=== PATIENT | female | born 1930 | race Caucasian/White ===

== ENCOUNTER 2017-01-28 15:07 | Inpatient (IN) | payer OTHER, MEDICARE ==
[~2017-01-28] VITALS: Ht 170.2 cm; Wt 65.3 kg
--- NOTE | 2017-01-28 15:29 | ED GENERAL ADULT ---
History of Present Illness General Chief Complaint: Fall Stated Complaint: BIBA FROM [place] FOR FALL Source: patient, family, old records, EMS Exam Limitations: dementia Vital Signs & Intake/Output Vital Signs & Intake/Output Vital Signs Date Time Temp Pulse Resp B/P B/P Pulse O2 O2 Flow FiO2 Mean Ox Delivery Rate 01/28 1532 96 Room Air 01/28 1515 98.2 64 17 160/85 96 Room Air Allergies Coded Allergies: acetaminophen (From PERCOCET) (UNKNOWN 01/28/17) cephalexin (From KEFLEX) (UNKNOWN 01/28/17) donepezil (From ARICEPT) (UNKNOWN 01/28/17) metronidazole (From FLAGYL) (UNKNOWN 01/28/17) oxycodone (From PERCOCET) (UNKNOWN 01/28/17) Triage Note: 86 Y/O FEMALE BIBA FROM A [employer] OUTTING. PT HAS HX OF DEMENTIA BUT A/O X2. PER EMS PT WAS ABOUT TO GET ON BUS AND HEAD BACK TO FACILITY AFTER OUTTING AND DID NOT MAKE IT TO FIRST STEP AND FELL BACKWARDS STRIKING BACK OF HEAD C/O RT SHOLDER PAIN AND ALSO A BRUISING TO LEFT HAND THUMB. PT NOTED WITH A LAC TO BACK OF HEAD UNSURE OF LENGHT YET ABOUT TO CLEAN AND ASSESS. PT NOTED WITH A NITRO PATCH TO RT CHESTWALL. PT ALSO NOTED WITH DRESSING TO RT LOWER DYE AND UNSURE OF WHAT KIND OF WOUND IT IS. SUGAR ANGULO AT BEDSIDE TO EVAL PT Triage Nurses Notes Reviewed? yes Onset: Just prior to arrival Duration: minute(s): (30) Timing: recent history Injury Environment: home Severity: moderate No Modifying Factors: none HPI: Patient is an 86-year-old female with history of dementia, high cholesterol, rheumatoid arthritis, hypertension, incontinence, constipation and depression presenting to the emergency department from assisted living with chief complaint of fall while at a luncheon outing. Patient unable to report any history as she "does not remember". All she knows is that she hit the back of her head and it hurts. Denies any nausea or vomiting. Denies chest pain or palpitations. Denies any trouble breathing. Denies abdominal pain. She is unsure if she had any presyncopal symptoms prior to falling. She is unsure if she tripped over anything. According to EMS she missed a step on the bus and fell backwards. According to the son the nursing supervisor testing from the assisted-living reported that she was in line and then collapsed. Stories are conflicting. Patient unable to report any history. Patient denying any lower extremity or upper extremity pain. Denies any burning or pain with urination. Denies any recent cough. (AGGIE GROVES) Reconcile Medications Acetaminophen (Tylenol Extra Strength) 500 MG TABLET 2 TAB PO BID PRN PAIN ( Reported) Ascorbate Calcium (Vitamin C) 500 MG TABLET 1 TAB PO DAILY SUPPLEMENT ( Reported) Aspirin (Aspirin*) 81 MG TAB.CHEW 1 TAB PO DAILY HEART HEALTH (Reported) Calcium Carbonate/Vitamin D3 (Calcium 600 + Vit D 400 Tablet) 600 MG-400 TABLET 2 TAB PO DAILY SUPPLEMENT (Reported) Citalopram Hydrobromide (Celexa) 10 MG TABLET 3 TAB PO DAILY DEPRESSION ( Reported) Denosumab (Prolia) (Unknown Strength) SYRINGE (Unknown Dose) EVERY 6 MONTH bones (Reported) Fish Oil/Dha/Epa (Fish Oil 1,200 MG Fish Oil) 1,200 MG-144 MG-216 MG CAPSULE 1 CAP PO DAILY SUPPLEMENT (Reported) Folic Acid 1 MG TABLET 1 TAB PO DAILY SUPPLEMENT (Reported) Infliximab (Remicade) (Unknown Strength) VIAL (Unknown Dose) INJ EVERY 6 MONTH RA (Reported) Memantine HCl (Namenda XR) 28 MG CAP.SPR.24 1 CAP PO DAILY DEMENTIA (Reported ) Methotrexate 2.5 MG TABLET 7 TAB PO QWED RA (Reported) Methylcellulose (Fiber) 500 MG TABLET 1 TAB PO DAILY SUPPLEMENT (Reported) Polyethylene Glycol 3350 (Miralax) 17 GRAM POWD.PACK 1 PAC PO DAILY PRN CONSTIPATION (Reported) dissolve in water Rivastigmine (Exelon) 13.3 MG/24 HOUR PATCH.TD24 1 PAT TOP DAILY DEMENTIA ( Reported) Sennosides/Docusate Sodium (Senna S Tablet) 8.6 MG-50 MG TABLET 2 TAB PO BID PRN CONSTIPATION (Reported) Simvastatin (Simvastatin*) 20 MG TABLET 1 TAB PO DAILY CHOLESTEROL (Reported) Solifenacin Succinate (Vesicare) 10 MG TABLET 1 TAB PO DAILY INCONTINENCE ( Reported) Triamterene/Hydrochlorothiazid (Triamterene-Hctz 37.5-25 MG Tb) 37.5 MG-25 MG TABLET 0.5 TAB PO DAILY HTN (Reported) (KARINA MD,SANDY) Past History Travel History Traveled to [place] past 21 day No Medical History Any Pertinent Medical History? see below for history Surgical History Surgical History: non-contributory Family History Hx Contributory? No (AGGIE GROVES) Review of Systems Review of Systems Constitutional: Reports: no symptoms. Comments Review of systems: See HPI, All other systems negative. Constitutional, no chills fever or weight loss HEENT: No visual changes no sore throat no congestion Cardiovascular: No chest pain ,palpitation , orthopnea or ankle swelling Skin, no jaundice no rashes Respiratory: No dyspnea cough sputum or hemoptysis GI: No nausea no vomiting : No dysuria No hematuria Muscle skeletal: no back pain, no neck pain, Neurologic: No numbness Psych: No INCREASED stress anxiety or depression,. Heme/endocrine: No bruising no bleeding no polyuria or polydipsia Immunology: No splenectomy or history of AIDS (AGGIE GROVES) Physical Exam Physical Exam General Appearance: well developed/nourished, no apparent distress, alert, awake , comfortable Comments: Well-developed well-nourished person in no acute distress HEENT:extraocular motion intact, no nystagmus. Pupils equally round and reactive to light and accommodation. Nose is atraumatic. External auditory canal and Tympanic membranes clear. Pharynx normal. No swelling or edema. Large hematoma approximately 5-6 cm in diameter, circular, noted on the posterior right occipital region of the scalp. No other bogginess or step-off palpated over entire scalp. Slightly dry lips. Neck: Supple, no lymphadenopathy, normal range of motion without pain or tenderness, no C-spine tenderness to palpation. There is some cervical paraspinal muscle tenderness to palpation. Back: Nontender to palpation throughout entire spine. No cervical, thoracic or lumbar pain to palpation over the bony prominences. No paraspinal muscle tenderness to palpation. Cardiovascular: Regular rate and rhythms no murmurs rubs or gallops, normal JVP Respiratory: Chest nontender. No respiratory distress.breath sounds clear to auscultation bilaterally Abdomen: Soft, nontender nondistended, no appreciable organomegaly. Normal bowel sounds. No ascites, no rebound or guarding. Extremity: No edema, no calf tenderness to palpation, normal and equal pulses. Arthritic changes noticed the hands bilaterally. Full range of motion of bilateral wrists, hands, elbows. Nontender to palpation to the shoulders bilaterally. Subeditor strength is equal and symmetric bilaterally. Muscular strength is 4 out of 5 in upper and lower extremities bilaterally. There was a developing hematoma noted after initial evaluation over the left distal radius. No tenderness to palpation over this area. Neuro: Alert oriented x person and place, confused about time and situation, motor sensory normal, cranial nerves II through XII grossly intact. No focal deficits. Skin: Small superficial abrasion, minimal active bleeding noted on the hematoma on the scalp otherwise No appreciable rash on exposed skin, skin is warm and dry. Psych: Mood and affect is normal, memory and judgment is normal. Core Measures ACS in differential dx? Yes CVA/TIA Diagnosis: No Severe Sepsis Present: No Septic Shock Present: No (KEV WOOTEN,AGGIE) Progress Differential Diagnoses I considered the following diagnoses in my evaluation of the patient: Intracranial hemorrhage, cardiac arrhythmia, dehydration, all actually abnormality, CVA, TIA, cervical fracture, vasovagal episode, orthostatic hypotension, mechanical fall Diagnostic Imaging: Viewed by Me: Radiology Read. Discussed w/RAD: Radiology Read. Radiology Impression: PATIENT: DELFINA NULL PRESENT AGE: 86 PATIENT ACCOUNT NO: [id number] : 31 LOCATION: [facility] ORDERING PHYSICIAN: AGGIE WOOTEN SERVICE DATE: 01/28/17 EXAM TYPE: CAT - CT CERV SPINE WO IV CONTRAST; CT HEAD WO IV CONTRAST EXAMINATION: NONCONTRAST HEAD CT NONCONTRAST CERVICAL SPINE CT INDICATION INFORMATION: Fall with head strike. COMPARISON: None TECHNIQUE: Separate noncontrast CT examinations of the head and cervical spine were performed. Coronal and sagittal images were created for each examination at the technologist workstation. FINDINGS: Head: There is no evidence of acute intracranial hemorrhage or territorial infarction. No abnormal mass effect or midline shift is seen. Bunn to white matter differentiation is well preserved. No extra-axial fluid collections are identified. No hydrocephalus. Proportional prominence of the ventricles and sulcal spaces is consistent with mild volume loss. Patchy periventricular and deep white matter hypoattenuation is consistent with moderate small vessel ischemic changes. There is prominent soft tissue swelling with hematoma overlying the right parietal region. There is no underlying calvarial fracture. The mastoid air cells and visualized portions of the paranasal sinuses are well aerated. Cervical spine: There is straightening of the normal cervical lordosis. Grade 1 anterolisthesis of C4 on C5. There is otherwise anatomic alignment of the vertebral bodies and posterior elements. The atlantoaxial and atlantooccipital articulations are intact. Vertebral body heights are maintained. There is fusion of the C5-C6 vertebral bodies. Multilevel facet arthropathy. Multilevel disc space narrowing with endplate osteophyte formation. No evidence of acute fracture. No prevertebral soft tissue swelling. Visualized portions of the lung apices are unremarkable. The thyroid gland is unremarkable. IMPRESSION: 1. No acute intracranial findings. Mild volume loss with moderate small vessel ischemic changes. 2. Right parietal soft tissue swelling and hematoma. No underlying calvarial fracture. 3. No acute fracture or malalignment of the cervical spine. Moderate degenerative changes. CXR Impression: PATIENT: DELFINA NULL PRESENT AGE : 86 PATIENT ACCOUNT NO: [id number] : 31 LOCATION: [facility] ORDERING PHYSICIAN: AGGIE WOOTEN SERVICE DATE: 01/28/17 EXAM TYPE: RAD - XRY-PORTABLE CHEST XRAY EXAMINATION: XR PORTABLE CHEST CLINICAL INFORMATION: Fall. Syncope. COMPARISON: None TECHNIQUE: Portable AP view of the chest was obtained. FINDINGS: The lungs are well expanded. Minimal left basilar opacity. No edema or effusion. No pneumothorax. The cardiomediastinal silhouette is within normal limits. Radiopaque hardware noted in the right humerus. IMPRESSION : Minimal left basilar opacity favors atelectasis, although pneumonia not excluded. DICTATED BY: POLO HOPSON MD DATE/TIME DICTATED:01/28/171546 MEDICAL SUPERVISOR:KARO DATE/TIME TRANSCRIBED:01/28/171546 CONFIDENTIAL, DO NOT COPY WITHOUT APPROPRIATE AUTHORIZATION. <Electronically signed in Other Vendor System> SIGNED BY: POLO HOPSON MD 01/28/17 [id number] Initial ED EKG: SINUS RHYTHM AT 63 BPM, PROBABLE LEFT ATRIAL ABNORMALITY Comments: 01/28/2017 5:13:14 PMOn arrival patient is alert and oriented 2 which is baseline for this patient. According to son she is acting at baseline. She does have large hematoma on the posterior aspect of the scalp. We will clean this area to further assess. Patient will go for CT head and neck TO RULE any intracranial pathology and to rule out any tenderness or cervical spine fracture although nontender over the C spine. 01/28/2017 6:13:24 PM patient was admitted with a rolling walker, steady gait with an assist of one. Patient usually independent with ADLs at assisted living. 01/28/2017 7:03:07 PM patient family informed of all lab work results and imaging study results. Patient will be admitted first syncope, further assessment for questionable syncope, neuro checks. She will need physical therapy evaluation as well. (KEV WOOTEN,AGGIE) Plan of Care: Orders Procedure Date/time Status Heart Healthy Diet 01/29 B Active CBC WITHOUT DIFFERENTIAL 01/29 0600 Active BASIC ELECTROLYTES PLUS BUN&CR 01/29 0600 Active Intake & Output 01/28 1858 Active XRY-WRIST COMPLETE-LEFT 01/28 1841 Active Patient Data 01/28 1828 Active Admit to inpatient 01/28 1827 Active Vital Signs 01/28 1827 Active Code Status 01/28 1827 Active Telemetry/Caddymaster 01/28 1529 Active URINALYSIS 01/28 1529 Complete TROPONIN LEVEL 01/28 1529 Complete COMPREHENSIVE METABOLIC PANEL 01/28 1529 Complete CREATINE PHOSPHOKINASE 01/28 1529 Complete CBC WITHOUT DIFFERENTIAL 01/28 1529 Complete EKG 01/28 1529 Active Laboratory Tests 01/28/17 1618: Urinalysis LIGHT H, Urine Color YEL, Urine Clarity CLEAR, Urine pH 6.5, Ur Specific [place] 1.020, Urine Protein NEG, Urine Ketones NEG, Urine Nitrite NEG, Urine Bilirubin NEG, Urine Urobilinogen 0.2, Ur Leukocyte Esterase SMALL H, Ur Microscopic SEDIMENT EXAMINED, Urine RBC RARE, Urine WBC 5-10 H, Ur Epithelial Cells FEW, Urine Bacteria FEW H, Hyaline Casts RARE H, Urine Mucus FEW, Urine Hemoglobin TRACE-INTACT, Urine Glucose NEG 01/28/17 1543: Anion Gap 11, Estimated GFR 60, BUN/Creatinine Ratio 24.4, Glucose 107 H, Calcium 9.0, Total Bilirubin 0.4, AST 20, ALT 27, Alkaline Phosphatase 66, Creatine Kinase 22 L, Troponin I < 0.01, Total Protein 6.7, Albumin 3.8, Globulin 2.9, Albumin/Globulin Ratio 1.3, CBC w Diff NO MAN DIFF REQ, RBC 3.36 L, MCV 100.4 H, MCH 33.4 H, RDW 16.4 H, MPV 6.9 L, Gran % 70.3, Lymphocytes % 17.3 L, Monocytes % 10.1 H, Eosinophils % 1.9, Basophils % 0.4, Absolute Granulocytes 5.1, Absolute Lymphocytes 1.2, Absolute Monocytes 0.7 H, Absolute Eosinophils 0.1, Absolute Basophils 0, PUBS MCHC 33.3 Departure Departure Time of Disposition: 1819 Disposition: STILL A PATIENT Condition: Stable Clinical Impression Primary Impression: Syncope Qualifiers: Syncope type: unspecified Qualified Code: R55 - Syncope and collapse Secondary Impressions: Falls Qualifiers: Encounter type: initial encounter Qualified Code: W19.XXXA - Unspecified fall, initial encounter Hematoma Referrals: DOMINIQUE WHITE MD (PCP/Family) Departure Forms: Customer Survey General Discharge Information Admission Note Spoke With: NATACHA LARIOS,MANSOOR Davidson Documentation of Exam: Documentation of any treatments & extenuating circumstances including Concerns Regarding Discharge (functional status, medication knowledge or non-compliance, living conditions, etc.) that warrant an admission rather than observation: Patient requiring cardiology consultation secondary to questionable syncopal episode, telemetry monitoring, serial EKGs and troponins, neuro checks to assess for any delayed bleeding. Physical therapy evaluation, may need rehabilitation placement secondary to repeat falls over short period of time. Patient requiring safety Q's with assist of one with walker. Patient usually independent with a walker. (AGGIE GROVES) PA/HOTEL OPERATIONS MANAGER Co-Sign Statement Statement: ED Attending supervision documentation- [X] I saw and evaluated the patient. I have also reviewed all the pertinent lab results and diagnostic results. I agree with the findings and the plan of care as documented in the PA's/HOTEL OPERATIONS MANAGER's documentation. [X] I have reviewed the ED Record and agree with the PA's/HOTEL OPERATIONS MANAGER's documentation. [] Additions or exceptions (if any) to the PAs/HOTEL OPERATIONS MANAGER's note and plan are summarized below: [] (KARINA LARIOS,SANDY) Critical Care Note Critical Care Note Critical Care Time: non-applicable (AGGIE GROVES)
[2017-01-28] MEDS ORDERED: VESICARE10 MG PO (15:31)
[2017-01-28] MEDS ORDERED: FOLIC ACID1 M1 PO (15:32)
[2017-01-28] MEDS ORDERED: NAMENDA XR28 M1 PO (15:32)
[2017-01-28] MEDS ORDERED: TRIAMTERENE-HC1 EAC1 PO (15:32)
[2017-01-28] MEDS ORDERED: VITAMIN C500 M6 PO (15:33)
[2017-01-28] MEDS ORDERED: FISH OIL 1,2001 EACH PO (15:34)
[2017-01-28] MEDS ORDERED: METHOTREXATE2.5 M2 PO (15:34)
[2017-01-28] MEDS ORDERED: SIMVASTATIN20 M2 PO (15:35)
[2017-01-28] MEDS ORDERED: ASPIRIN81 M4 PO (15:35)
[2017-01-28] MEDS ORDERED: FIBER500 MG PO (15:35)
[2017-01-28] MEDS ORDERED: EXELON1 EAC2 TOP (15:36)
[2017-01-28] MEDS ORDERED: SENNA S TABLET1 EACH PO (15:37)
[2017-01-28] MEDS ORDERED: CALCIUM 600 +1 EA11 PO (15:37)
[2017-01-28] MEDS ORDERED: TYLENOL EXTRA500 M2 PO (15:38)
[2017-01-28] MEDS ORDERED: MIRALAX17 G1 PO (15:38)
[2017-01-28] MEDS ORDERED: CELEXA10 M1 PO (15:39)
--- NOTE | 2017-01-28 15:51 | RADIOLOGY REPORT ---
EXAMINATION: XR PORTABLE CHEST CLINICAL INFORMATION: Fall. Syncope. COMPARISON: None TECHNIQUE: Portable AP view of the chest was obtained. FINDINGS: The lungs are well expanded. Minimal left basilar opacity. No edema or effusion. No pneumothorax. The cardiomediastinal silhouette is within normal limits. Radiopaque hardware noted in the right humerus. IMPRESSION: Minimal left basilar opacity favors atelectasis, although pneumonia not excluded.
--- NOTE | 2017-01-28 16:15 | CT SCAN REPORT ---
EXAMINATION: NONCONTRAST HEAD CT NONCONTRAST CERVICAL SPINE CT INDICATION INFORMATION: Fall with head strike. COMPARISON: None TECHNIQUE: Separate noncontrast CT examinations of the head and cervical spine were performed. Coronal and sagittal images were created for each examination at the technologist workstation. FINDINGS: Head: There is no evidence of acute intracranial hemorrhage or territorial infarction. No abnormal mass effect or midline shift is seen. Bunn to white matter differentiation is well preserved. No extra-axial fluid collections are identified. No hydrocephalus. Proportional prominence of the ventricles and sulcal spaces is consistent with mild volume loss. Patchy periventricular and deep white matter hypoattenuation is consistent with moderate small vessel ischemic changes. There is prominent soft tissue swelling with hematoma overlying the right parietal region. There is no underlying calvarial fracture. The mastoid air cells and visualized portions of the paranasal sinuses are well aerated. Cervical spine: There is straightening of the normal cervical lordosis. Grade 1 anterolisthesis of C4 on C5. There is otherwise anatomic alignment of the vertebral bodies and posterior elements. The atlantoaxial and atlantooccipital articulations are intact. Vertebral body heights are maintained. There is fusion of the C5-C6 vertebral bodies. Multilevel facet arthropathy. Multilevel disc space narrowing with endplate osteophyte formation. No evidence of acute fracture. No prevertebral soft tissue swelling. Visualized portions of the lung apices are unremarkable. The thyroid gland is unremarkable. IMPRESSION: 1. No acute intracranial findings. Mild volume loss with moderate small vessel ischemic changes. 2. Right parietal soft tissue swelling and hematoma. No underlying calvarial fracture. 3. No acute fracture or malalignment of the cervical spine. Moderate degenerative changes.
[2017-01-28 16:17] LABS: ABSOLUTE BASOPHIL COUNT 0 /CUMM (0.0-0.2); ABSOLUTE EOSINOPHIL COUNT 0.1 /CUMM (0.0-0.7); ABSOLUTE GRANULOCYTE CT 5.1 /CUMM (1.4-6.5); ABSOLUTE LYMPH COUNT 1.2 /CUMM (1.2-3.4); ABSOLUTE MONOCYTE COUNT 0.7 /CUMM (0.10-0.60); BASOPHIL % 0.4 % (0.0-2.0); EOSINOPHIL % 1.9 % (0-5); GRANULOCYTE % 70.3 % (42.2-75.2); HEMATOCRIT 33.7 % (37-47); MEAN CORPUSCULAR HGB 33.4 PG (27.0-31.0); MEAN CORPUSCULAR HGB CONC 33.3 G/DL (33.0-37.0); MEAN CORPUSCULAR VOLUME 100.4 FL (81.0-99.0); MEAN PLATELET VOLUME 6.9 FL (7.4-10.4); PLATELET COUNT 199 /CUMM (130-400); RBC DISTRIBUTION WIDTH 16.4 % (11.5-14.5); RED BLOOD CELL CT 3.36 /CUMM (4.20-5.40); WHITE BLOOD CELL COUNT 7.2 /CUMM (4.8-10.8)
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
[2017-01-28] MEDS ORDERED: REMICADE100 MG INJ (19:33)
[2017-01-28] MEDS ORDERED: PROLIA60 MG/1 ML (19:40)
--- NOTE | 2017-01-28 20:11 | RADIOLOGY REPORT ---
EXAMINATION: XR WRIST, LEFT CLINICAL INFORMATION: 86-year-old experienced trauma to the left wrist. COMPARISON: None TECHNIQUE: AP, lateral, and oblique views of the left wrist. (4 views). FINDINGS: There is no definite acute fracture or dislocation seen. However, there is extensive arthritis involving the carpal carpal articulations and the radiocarpal articulations. Juxta articular sclerosis and joint space narrowing is seen throughout the wrist. The triscaphe joint is also involved with degenerative arthritis. As a matter of fact, the arthritis is so advanced that a portion of the scaphoid carpal bone has migrated through the articular surface of the distal left radius. IMPRESSION: Significant osteoarthritis and deformity of the carpal bones and their articulations and radiocarpal joints as well as the triscaphe joint. No definite acute fracture which is difficult to assess based on these findings.
--- NOTE | 2017-01-28 22:54 | Admission Certification ---
Admission Certification Certification Statement - As attending physician, I certify that at the time of - admission, based on clinical presentation, severity of - symptoms, need for further diagnostic testing and - therapeutic interventions, and risk of adverse outcomes - without in-hospital treatment, in my clinical assessment, - this patient requires an acute hospital stay for a minimum - of two nights or longer. I have also considered psychsocial - factors such as support system, advanced age, financial - issues, cognitive issues, and failed out-patient treatments, - past re-admission history, safety of patient, and lack of - compliance as applicable. Specific rationale supporting this admission is: Fall, ? Presyncope, scalp hematoma
[2017-01-28 23:41] VITALS: BP 132/74
[2017-01-29 07:50] VITALS: BP 144/76
--- NOTE | 2017-01-29 08:00 | PN- Housestaff ---
Subjective Follow-up For: Fall injury, with head trauma Complaints: no complaints Tele-Events Since Last Visit: Sinus bradycardia, sinus rhythm, heart rate ranging from 50-61. Subjective: I followed up and examined the patient today. She is resting comfortably in bed , not in distress, does not have any complaints, telemetry recordings as noted above, no overnight issues. She has bandage around her forehead, and the bruise/swelling over her left wrist has come down, and she is moving her left wrist without any difficulty. Of note, she just woke up when I followed up this morning so she was still confused, will reassess. Of note, she has baseline dementia. Review of Systems Constitutional: Reports: no symptoms. Objective Last 24 Hrs of Vital Signs/I&O Vital Signs Date Time Temp Pulse Resp B/P B/P Pulse O2 O2 Flow FiO2 Mean Ox Delivery Rate 01/28 2341 98.3 61 18 132/74 95 Room Air 01/28 1956 96.8 87 18 138/66 99 Room Air 01/28 1920 97.6 66 17 139/69 96 Room Air 01/28 1730 97.2 64 17 132/66 96 Room Air 01/28 1532 96 Room Air 01/28 1515 98.2 64 17 160/85 96 Room Air Intake & Output 01/29 1600 01/29 0800 01/29 0000 Intake Total 600 Output Total 1 Balance 599 Intake, Oral 600 Output, Other 1 Patient 65.317 kg Weight Weight Reported by Patient Measurement Method Physical Exam General Appearance: Alert, Cooperative, No Acute Distress Other Physical Findings: Skin small irregular lacerations over parietal region of head, clots present, no active bleeding, abt 3cm x 3cm bruise and swelling in the same area; mildly tender, left wrist bruise/swelling has decreased significantly HEENT PERRLA, EOMI, scalp lesion covered with a bandage (see H&P for original discription), moist mucosa Neck Supple, No JVD, no cervical tenderness Lymphatic Cervical nl Cardiovascular Regular Rate, Normal S1, Normal S2 Lungs b/l clear, except for decreased breath sound over left basal region, some crackles heard in the same zone too, no rib-cage tenderness b/l Abdomen Normal Bowel Sounds, Soft, No Tenderness Neurological Normal Speech, Strength at 5/5 X4 Ext, Normal Tone, Sensation Intact, Cranial Nerves 3-12 NL, gait not examined, but noted as in HPI Extremities No Clubbing, No Cyanosis, Normal Pulses, No Tenderness/Swelling, hip compression test normal, non-tender, is moving normally, left wrist lesion has decreased and she is able to move her left wrist without difficulty, able to move both upper extremities across over to opp shoulder, non tender, no bruise, no change in function, significant arthritic chages- suggestive of rheumatoid arthritis as well as osteoarthritis Vascular Normal Pulses, Pulses Symmetrical Current Medications: Current Medications Sig/Jeffry Start time Last Medication Dose Route Stop Time Status Admin Acetaminophen 650 MG Q6P PRN 01/28 1930 AC PO Atorvastatin Calcium 10 MG 1700 01/29 1700 AC PO Citalopram 30 MG DAILY 01/29 1000 AC Hydrobromide PO Folic Acid 1 MG DAILY 01/29 1000 AC PO Memantine 10 MG BID 01/28 2200 AC 01/28 PO 221 Morphine Sulfate 2 MG Q4P PRN 01/28 1930 AC IV Oxybutynin Chloride 5 MG BID 01/28 2200 AC 01/28 PO 221 Polyethylene Glycol 17 GM DAILY 01/29 1000 AC PO Rivastigmine 9.5 MG DAILY 01/29 1000 AC TOP Sodium Chloride 1,000 ML Q13H 01/29 0100 DC 01/29 IV 01/29 1359 0113 Last 24 Hrs of Lab/Lam Results Last 24 Hrs of Labs/Mics: Laboratory Tests 01/29/17 0620: Sodium Pending, Potassium Pending, Chloride Pending, Carbon Dioxide Pending, Anion Gap Pending, BUN Pending, Creatinine Pending, BUN/Creatinine Ratio Pending , CBC w Diff Pending, WBC Pending, RBC Pending, Hgb Pending, Hct Pending, MCV Pending, MCH Pending, RDW Pending, Plt Count Pending, MPV Pending, PUBS MCHC Pending 01/28/17 2210: Troponin I < 0.01 01/28/17 1618: Urinalysis LIGHT H, Urine Color YEL, Urine Clarity CLEAR, Urine pH 6.5, Ur Specific [place] 1.020, Urine Protein NEG, Urine Ketones NEG, Urine Nitrite NEG, Urine Bilirubin NEG, Urine Urobilinogen 0.2, Ur Leukocyte Esterase SMALL H, Ur Microscopic SEDIMENT EXAMINED, Urine RBC RARE, Urine WBC 5-10 H, Ur Epithelial Cells FEW, Urine Bacteria FEW H, Hyaline Casts RARE H, Urine Mucus FEW, Urine Hemoglobin TRACE-INTACT, Urine Glucose NEG 01/28/17 1543: Anion Gap 11, Estimated GFR 60, BUN/Creatinine Ratio 24.4, Glucose 107 H, Calcium 9.0, Iron 41, TIBC 339, Ferritin 54.1, Total Bilirubin 0.4, AST 20, ALT 27, Alkaline Phosphatase 66, Creatine Kinase 22 L, Troponin I < 0.01, Total Protein 6.7, Albumin 3.8, Globulin 2.9, Albumin/Globulin Ratio 1.3, Vitamin B12 480, Folate > 20.0 H, TSH 1.970, CBC w Diff NO MAN DIFF REQ, RBC 3.36 L, MCV 100.4 H, MCH 33.4 H, RDW 16.4 H, MPV 6.9 L, Gran % 70.3, Lymphocytes % 17.3 L, Monocytes % 10.1 H, Eosinophils % 1.9, Basophils % 0.4, Absolute Granulocytes 5.1, Absolute Lymphocytes 1.2, Absolute Monocytes 0.7 H, Absolute Eosinophils 0.1, Absolute Basophils 0, PUBS MCHC 33.3 Assessment/Plan Assessment: 86 yo F with past medical history of dementia, HTN, HLD, RA, OA, urinary incontinence, constipation, depression, was brought in by ambulance earlier this afternoon after sustaining a fall injury. Currently she is admittd and being observed, and managed in telemetry floor for the following issues: #Fall injury with truma to head History is not clear whether she sustained a mechanical fall or had an episode of syncope with a fall, so warrants a work-up, observation, and management accordingly. Differentials considered are mechanical fall, syncope, ACS, arrhythmia, TIA/stroke, dehydration, hypoglycemia among others. CT head and neck has ruled out acute intracranial bleeding and no acute cervical spine injury. Mechanical fall is likely, in the setting of her arthritis, and dehydration as evidenced by her increased BUN. Need to monitor her in telemetry for arrhythmia. TIA/stroke is also a possiblility to consider, although CT head does not demonstrate bleed. -no overnight event/arrhythmia, continue telemetry -Frequent vitals and neurochecks -Continue wound care for her scalp lesion -Ruled out ACS with serial troponin and EKG -Awaiting echocardiogram to assess her cardiac status -Previous pertinent medical records from [facility] was obtained earlier today, which did not reveal any predisposing conditions neurologically or cardiologically. No echo reports were included in the documents received. -Orthostatic blood pressure reading ordered, which is negative for orthostatic hypotension. -Continue fall precautions -Her antihypertensive medications and aspirin today -PT eval: Physical therapy assessment carried out this morning suggested short- term rehabilitation after being discharged from here. #Macrocytic anemia Hb is 11 with high MCV suggestive of possible Vit B12 deficinecy, which can also cause SCD (subacute combined degeneration of spinal cord). -Vitamin B12, Folate level, and iron studies normal #Left hand bruise -X-ray of her left wrist showed old osteoarthritic changes, no fracture or dislocation. -We will manage for local soft tissue injury, no orthopedic evaluation deemed further necessary. #Right shoulder examination is normal currently, so will only observe for now #Continue medications for dementia, hyperlipidemia, urinary incontinence, depression with home meds #Diet: Heart healthy diet #DVT ppx: ALPS for now, as possiblity of bleeding is still present #Code status: DNR/DNI Problem List: 1. Syncope 2. Falls 3. Scalp wound 4. Bruising of wrist 5. Dementia 6. HTN (hypertension) 7. HLD (hyperlipidemia) 8. Rheumatoid aortitis 9. Osteoarthritis 10. Urinary incontinence 11. Constipation 12. Depression Pain Ratin Pain Location: scalp Pain Goal: Pain 4 or less Pain Plan: prn Tomorrow's Labs & Rationales: BEP, Mg to reassess lytes and Mg
[2017-01-29 08:12] LABS: ABSOLUTE BASOPHIL COUNT 0 /CUMM (0.0-0.2); ABSOLUTE EOSINOPHIL COUNT 0.2 /CUMM (0.0-0.7); ABSOLUTE GRANULOCYTE CT 5.1 /CUMM (1.4-6.5); ABSOLUTE LYMPH COUNT 1.3 /CUMM (1.2-3.4); ABSOLUTE MONOCYTE COUNT 0.6 /CUMM (0.10-0.60); BASOPHIL % 0.3 % (0.0-2.0); EOSINOPHIL % 2.5 % (0-5); GRANULOCYTE % 71.2 % (42.2-75.2); HEMATOCRIT 32.3 % (37-47); MEAN CORPUSCULAR HGB 33.7 PG (27.0-31.0); MEAN CORPUSCULAR HGB CONC 33.5 G/DL (33.0-37.0); MEAN CORPUSCULAR VOLUME 100.6 FL (81.0-99.0); MEAN PLATELET VOLUME 7.2 FL (7.4-10.4); PLATELET COUNT 178 /CUMM (130-400); RBC DISTRIBUTION WIDTH 16.1 % (11.5-14.5); RED BLOOD CELL CT 3.21 /CUMM (4.20-5.40); WHITE BLOOD CELL COUNT 7.2 /CUMM (4.8-10.8)
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
--- NOTE | 2017-01-29 15:37 | PN- Att Addend ---
Attending MD Review Statement Attending Statement Attending MD Statement: examined this patient, discuss w/resident/PA/SENIOR SOFTWARE SYSTEMS ENGINEER, agreed w/resident/PA/SENIOR SOFTWARE SYSTEMS ENGINEER, reviewed EMR data (avail), discussed w/nursing, discussed w/ case mgmt Attending Assessment/Plan: Laboratory Tests 01/29/17 0620: Anion Gap 7, Estimated GFR > 60, BUN/Creatinine Ratio 18.8, CBC w Diff NO MAN DIFF REQ, RBC 3.21 L, MCV 100.6 H, MCH 33.7 H, RDW 16.1 H, MPV 7.2 L, Gran % 71.2, Lymphocytes % 18.2 L, Monocytes % 7.8, Eosinophils % 2.5, Basophils % 0.3, Absolute Granulocytes 5.1, Absolute Lymphocytes 1.3, Absolute Monocytes 0.6 , Absolute Eosinophils 0.2, Absolute Basophils 0, PUBS MCHC 33.5 01/28/17 2210: Troponin I < 0.01 01/28/17 1618: Urinalysis LIGHT H, Urine Color YEL, Urine Clarity CLEAR, Urine pH 6.5, Ur Specific [place] 1.020, Urine Protein NEG, Urine Ketones NEG, Urine Nitrite NEG, Urine Bilirubin NEG, Urine Urobilinogen 0.2, Ur Leukocyte Esterase SMALL H, Ur Microscopic SEDIMENT EXAMINED, Urine RBC RARE, Urine WBC 5-10 H, Ur Epithelial Cells FEW, Urine Bacteria FEW H, Hyaline Casts RARE H, Urine Mucus FEW, Urine Hemoglobin TRACE-INTACT, Urine Glucose NEG 01/28/17 1543: Anion Gap 11, Estimated GFR 60, BUN/Creatinine Ratio 24.4, Glucose 107 H, Calcium 9.0, Iron 41, TIBC 339, Ferritin 54.1, Total Bilirubin 0.4, AST 20, ALT 27, Alkaline Phosphatase 66, Creatine Kinase 22 L, Troponin I < 0.01, Total Protein 6.7, Albumin 3.8, Globulin 2.9, Albumin/Globulin Ratio 1.3, Vitamin B12 480, Folate > 20.0 H, TSH 1.970, CBC w Diff NO MAN DIFF REQ, RBC 3.36 L, MCV 100.4 H, MCH 33.4 H, RDW 16.4 H, MPV 6.9 L, Gran % 70.3, Lymphocytes % 17.3 L, Monocytes % 10.1 H, Eosinophils % 1.9, Basophils % 0.4, Absolute Granulocytes 5.1, Absolute Lymphocytes 1.2, Absolute Monocytes 0.7 H, Absolute Eosinophils 0.1, Absolute Basophils 0, PUBS MCHC 33.3 Vital Signs Date Time Temp Pulse Resp B/P B/P Pulse O2 O2 Flow FiO2 Mean Ox Delivery Rate 01/29 1236 Room Air 01/29 1230 Room Air 01/29 0750 98.8 64 20 144/76 95 Room Air 01/28 2341 98.3 61 18 132/74 95 Room Air 01/28 1956 96.8 87 18 138/66 99 Room Air 01/28 1920 97.6 66 17 139/69 96 Room Air 01/28 1730 97.2 64 17 132/66 96 Room Air Patient seen and examined at bedside. Discussed with patient the care plan. Patient knows where she lives but did given her dementia she is unable to tell me where she is right now. Patient had a mechanical fall before boarding a bus. CT of the head showed no intracranial abnormality. Telemetry shows no cardiac arrhythmias. Patient denies any chest pain or palpitations. We are getting a echocardiogram to evaluate for any valvular abnormalities. No Marisa bruits heard on examination. Seen by physical therapy and they recommended subacute rehabilitation. Discussed with case management and we will start looking for a place for rehabilitation.
[2017-01-29 16:00] VITALS: BP 108/66
--- NOTE | 2017-01-29 18:45 | ECHOCARDIOGRAM REPORT ---
DELFINA NULL Age: 86 : 1930 Gender: F Exam Date: 01/29/2017 16:36 Exam Location: [address] Ht (in): 67 Wt (lb): 143 BSA: 1.75 BP: 144 / 76 Ordering Physician: ARTIS COTE MD Referring Physician: ARTIS COTE MD Technologist: Alice Pierson [facility] Room Number: 174-02 Indications: STRUCTURAL HEART DISEASE Rhythm: Sinus Technical Quality: Good FINDINGS Left Ventricle Normal size left ventricle. Mild concentric left ventricular hypertrophy. Normal left ventricular ejection fraction visually estimated at >65 %. No obvious regional wall motion abnormalities. Abnormal relaxation filling pattern of the left ventricle for age (stage 1 diastolic dysfunction). Right Ventricle The right ventricle is normal in size and function. Right Atrium The right atrium is normal in size. Left Atrium The left atrium is normal in size. The interatrial septum is intact. Mitral Valve Mild thickening/calcification of the mitral valve leaflets. Mild to moderate mitral annular calcification. No mitral regurgitation. Aortic Valve Focal thickening of the aortic valve cusps. No aortic stenosis. Mild aortic regurgitation. Tricuspid Valve The tricuspid valve is normal in structure and function. There is trace tricuspid regurgitation. Pulmonary artery systolic pressure is normal. Pulmonic Valve Structurally normal pulmonic valve. There is trace pulmonic regurgitation. Pericardium Normal pericardium without effusion. No pleural effusion. Great Vessels Normal aortic root dimension. The aortic arch and great vessels are well seen and are normal. CONCLUSIONS Mild concentric left ventricular hypertrophy. Normal left ventricular ejection fraction visually estimated at >65 Abnormal relaxation filling pattern of the left ventricle for age (stage 1 diastolic dysfunction). The left atrium is normal in size. Mild thickening/calcification of the mitral valve leaflets. Mild to moderate mitral annular calcification. No mitral regurgitation. Focal thickening of the aortic valve cusps. No aortic stenosis. Mild aortic regurgitation. Pulmonary artery systolic pressure is normal. Marcus Hernandez M.D. (Electronically Signed) Final Date: 29 January 2017 18:45 MEASUREMENTS (Male / Female) Normal Values 2D ECHO LV Diastolic Diameter PLAX 3.4 cm 4.2 - 5.9 / 3.9 - 5.3 cm LV Systolic Diameter PLAX 2.0 cm 2.1 - 4.0 cm LV Fractional Shortening PLAX 41.2 % 25 - 46 % LV Ejection Fraction 2D Teich 73.2 % IVS Diastolic Thickness 1.2 cm LVPW Diastolic Thickness 1.2 cm LV Relative Wall Thickness 0.7 RV Internal Dim ED PLAX 2.4 cm 1.9 - 3.8 cm LVOT Diameter 2.1 cm Aortic Root Diameter 3.2 cm LA Systolic Diameter LX 3.5 cm 3.0 - 4.0 / 2.7 - 3.8 cm LA Volume 42.0 cm 18 - 58 / 22 - 52 cm Ascending Aorta Diameter 3.3 cm DOPPLER AV Peak Velocity 180.0 cm/s AV Peak Gradient 13.0 mmHg AV Mean Velocity 120.0 cm/s AV Mean Gradient 6.0 mmHg AV Velocity Time Integral 41.5 cm LVOT Peak Velocity 133.0 cm/s LVOT Peak Gradient 7.1 mmHg LVOT Mean Velocity 87.3 cm/s LVOT Mean Gradient 4.0 mmHg LVOT Velocity Time Integral 29.8 cm LVOT Stroke Volume 103.2 cm AV Area Cont Eq vti 2.5 cm AV Area Cont Eq pk 2.6 cm MV Peak Velocity 141.0 cm/s MV Peak Gradient 8.0 mmHg MV Mean Velocity 75.2 cm/s MV Mean Gradient 3.0 mmHg Mitral E Point Velocity 111.0 cm/s Mitral A Point Velocity 143.0 cm/s Mitral E to A Ratio 0.8 MV PHT Velocity 127.0 cm/s MV Deceleration Pinal 354.0 cm/s MV Pressure Half Time 107.6 ms MV Area PHT 2.0 cm MV Deceleration Time 312.0 ms TR Peak Velocity 254.0 cm/s TR Peak Gradient 25.8 mmHg Right Atrial Pressure 5.0 mmHg Pulmonary Artery Systolic Pressu 30.8 mmHg Right Ventricular Systolic Press 30.8 mmHg PV Peak Velocity 105.0 cm/s PV Peak Gradient 4.4 mmHg PV Mean Velocity 74.3 cm/s PV Mean Gradient 3.0 mmHg PV Velocity Time Integral 28.1 cm LV E' Lateral Velocity 6.8 cm/s Mitral E to LV E' Lateral Ratio 16.3 LV E' Septal Velocity 7.3 cm/s Mitral E to LV E' Septal Ratio 15.2
[2017-01-29 23:55] VITALS: BP 148/62
--- NOTE | 2017-01-30 07:37 | PN- Housestaff ---
Subjective Follow-up For: Syncope, Fall with scalp injury Complaints: no complaints Tele-Events Since Last Visit: Sinus rhythm, sinus bradycardia heart rate ranging from 56-77, some PACs. Subjective: I followed up and examined the patient today. She is resting comfortably in bed , not in distress, just woke up, appears slightly confused, doesn't have any complaints, telemetry recording as noted above, no other issues. She still has a bandage wrapped around her head. Review of Systems Constitutional: Reports: no symptoms. Objective Last 24 Hrs of Vital Signs/I&O Vital Signs Date Time Temp Pulse Resp B/P B/P Pulse O2 O2 Flow FiO2 Mean Ox Delivery Rate 01/29 2355 98.0 64 20 148/62 94 Room Air 01/29 1600 98.3 62 20 108/66 96 Room Air 01/29 1236 Room Air 01/29 1230 Room Air Intake & Output 01/30 0800 01/30 0000 01/29 1600 Intake Total 480 1320 Output Total 2 400 Balance 478 920 Intake, IV 600 Intake, Oral 480 720 Number 2 Bowel Movements Output, Other 2 Output, Urine 400 Physical Exam General Appearance: Alert, Oriented X3, Cooperative, No Acute Distress, slight confusion (just woke up) Other Physical Findings: Skin bandage wrapped around the head, over the scalp lesion as noted yesterday and the day before, not actively bleeding/oozing; mildly tender, left wrist bruise/swelling has decreased significantly HEENT PERRLA, EOMI, scalp lesion covered with a bandage (see H&P for original discription), moist mucosa Neck Supple, No JVD, no cervical tenderness Lymphatic Cervical nl Cardiovascular Regular Rate, Normal S1, Normal S2 Lungs b/l clear, except for decreased breath sound over left basal region Abdomen Normal Bowel Sounds, Soft, No Tenderness Neurological Normal Speech, Strength at 5/5 X4 Ext, Normal Tone, Sensation Intact, Cranial Nerves 3-12 NL, gait not examined, but noted as in HPI Extremities No Clubbing, No Cyanosis, Normal Pulses, No Tenderness/Swelling, hip compression test normal, non-tender, is moving normally, left wrist lesion has decreased and she is able to move her left wrist without difficulty, able to move both upper extremities across over to opp shoulder, non tender, significant arthritic chages- suggestive of rheumatoid arthritis as well as osteoarthritis Vascular Normal Pulses, Pulses Symmetrical Current Medications: Current Medications Sig/Jeffry Start time Last Medication Dose Route Stop Time Status Admin Acetaminophen 650 MG Q6P PRN 01/28 1930 AC PO Aspirin 81 MG DAILY 01/30 1000 AC PO Atorvastatin Calcium 10 MG 1700 01/29 1700 AC 01/29 PO 1740 Citalopram 30 MG DAILY 01/29 1000 AC 01/29 Hydrobromide PO 1122 Enoxaparin Sodium 40 MG DAILY 01/30 1000 AC SC Folic Acid 1 MG DAILY 01/29 1000 AC 01/29 PO 1122 Hydrochlorothiazide 12.5 MG DAILY 01/30 1000 AC PO Memantine 10 MG BID 01/28 2200 AC 01/29 PO 2041 Morphine Sulfate 2 MG Q4P PRN 01/28 193 AC IV Oxybutynin Chloride 5 MG BID 01/28 2200 AC 01/29 PO 2041 Polyethylene Glycol 17 GM DAILY 01/29 1000 AC 01/29 PO 1121 Rivastigmine 9.5 MG DAILY 01/29 1000 AC 01/29 TOP 1122 Last 24 Hrs of Lab/Lam Results Last 24 Hrs of Labs/Mics: Laboratory Tests 01/30/17 0600: Sodium Pending, Potassium Pending, Chloride Pending, Carbon Dioxide Pending, Anion Gap Pending, BUN Pending, Creatinine Pending, BUN/Creatinine Ratio Pending , Magnesium Pending Assessment/Plan Assessment: 86 yo F with past medical history of dementia, HTN, HLD, RA, OA, urinary incontinence, constipation, depression, was brought in by ambulance earlier this afternoon after sustaining a fall injury. Currently she is admittd and being observed, and managed in telemetry floor for the following issues: #Fall injury with truma to head History is not clear whether she sustained a mechanical fall or had an episode of syncope with a fall, so warrants a work-up, observation, and management accordingly. Differentials considered were mechanical fall, syncope, ACS, arrhythmia, TIA/stroke, dehydration, hypoglycemia among others. Echo was not contributory for any cause. -She is confused and is not at her baseline today. -no overnight event/arrhythmia, continue telemetry -Continue wound care for her scalp lesion -Continue fall precautions -Continue antihypertensive medications and aspirin -PT eval: Physical therapy assessment carried out this morning AGAIN suggested short-term rehabilitation after being discharged from here. She is requiring assistance for almost every activities according to physical therapist today. Son Julio was called and updated by me about the situation and he is agreeable with the discharge plans. cardiac cath lab manager Mercedez is already working on further process. #Macrocytic anemia Hb is 11 with high MCV suggestive of possible Vit B12 deficinecy, which has been ruled out with Vitamin B12, Folate level, and iron studies within normal limits. #Left hand bruise -X-ray of her left wrist showed old osteoarthritic changes, no fracture or dislocation. #Right shoulder examination is normal currently, so will only observe for now #Continue medications for dementia, hyperlipidemia, urinary incontinence, depression with home meds #Diet: Heart healthy diet #DVT ppx: ALPS for now, as possiblity of bleeding is still present #Code status: DNR/DNI Problem List: 1. Falls 2. Hematoma 3. Scalp wound 4. Bruising of wrist 5. Dementia 6. HTN (hypertension) 7. HLD (hyperlipidemia) 8. Rheumatoid aortitis 9. Osteoarthritis 10. Urinary incontinence 11. Constipation 12. Depression Pain Ratin Pain Location: - Pain Goal: Remain pain free Pain Plan: prn Tomorrow's Labs & Rationales: - 10. Urinary incontinence 11. Constipation 12. Depression Pain Ratin Pain Location: - Pain Goal: Remain pain free Pain Plan: prn
[2017-01-30 08:42] VITALS: BP 140/60
--- NOTE | 2017-01-30 14:28 | PN- Att Addend ---
Attending MD Review Statement Attending Statement Attending MD Statement: examined this patient, discuss w/resident/PA/PAINTER [employer]IRR[employer], agreed w/resident/PA/PAINTER MIRR[employer], reviewed EMR data (avail), discussed w/nursing, discussed w/ case mgmt Attending Assessment/Plan: Laboratory Tests 01/30/17 0600: Anion Gap 6, Estimated GFR 60, BUN/Creatinine Ratio 15.6, Magnesium 2.0 Vital Signs Date Time Temp Pulse Resp B/P B/P Pulse O2 O2 Flow FiO2 Mean Ox Delivery Rate 01/30 0842 98.8 56 20 140/60 98 Room Air 01/29 2355 98.0 64 20 148/62 94 Room Air 01/29 1600 98.3 62 20 108/66 96 Room Air Patient seen and examined at bedside. Discussed with patient the care plan. Patient with underlying baseline dementia. I discussed the case with case management and physical therapy has been recommending subacute rehabilitation. They are going to do the evaluation today to see if the patient would qualify for subacute rehabilitation at [facility]. If she does not qualify the patient may go back to her assisted living facility. We will discuss with patient's son and the care plan before making a final decision. Her echocardiogram done was unremarkable.
[2017-01-30 16:03] VITALS: BP 108/66
--- NOTE | 2017-01-30 16:54 | Patient Discharge Instructions ---
Discharge Instructions General Discharge Information You were seen/treated for: fall Special Instructions: -Please follow-up with your primary care provider within 7 days after discharge. -We have made changes to your home medications, please read the instructions carefully. -Follow up with Rheumatology within ten days of discharge. You need to get plans of two medicines (Infliximab and Denosumab) planned with Rheumatology service. -Please come back to the hospital if your symptoms got worse. Diet Recommended Diet: Heart Healthy Activity Full Activity/No Limits: Yes (as tolerated) Acute Coronary Syndrome Inclusion Criteria At DC or during hospital stay patient has or had the following: ACS DIAGNOSIS No Discharge Core Measures Meds if any: Prescribed or Continued at Discharge Meds if any: NOT Prescribed or Continued at Discharge Congestive Heart Failure Inclusion Criteria At DC or during hospital stay patient has or had the following: CHF DIAGNOSIS No Discharge Core Measures Meds if any: Prescribed or Continued at Discharge Meds if any: NOT Prescribed or Continued at Discharge Cerebrovascular accident Inclusion Criteria At DC or during hospital stay patient has or had the following: CVA/TIA Diagnosis No Discharge Core Measures Meds if any: Prescribed or Continued at Discharge Meds if any: NOT Prescribed or Continued at Discharge Venous thromboembolism Inclusion Criteria VTE Diagnosis No VTE Type NONE VTE Confirmed by (Test) NONE Discharge Core Measures - Per Current guidelines, there needs to be overlap - treatment for the first 5 days of Warfarin therapy. - If discharged on Warfarin prior to 5 days of - overlap therapy, the patient will need to be - assessed for post discharge needs including - *Post discharge parental anticoagulation - *Warfarin and/or parental anticoagulation education - *Follow up date to check INR post discharge At least 5 days overlap therapy as Inpatient No Meds if any: Prescribed or Continued at Discharge Note: Overlap Therapy is Warfarin and Anticoagulant Meds if any: NOT Prescribed or Continued at Discharge
[2017-01-31 00:31] VITALS: BP 130/88
[2017-01-31 08:22] VITALS: BP 148/82
--- NOTE | 2017-01-31 08:52 | PN- Housestaff ---
Subjective Follow-up For: Syncope, Fall with scalp injury Complaints: no complaints Tele-Events Since Last Visit: sr, sb, hr 56-78, some pvs and pac noted Subjective: I followed up the patient today. She remains confused, better when reoriented, no complaints, vitals have remained stable, no overnight issues. Review of Systems Constitutional: Reports: no symptoms. Objective Last 24 Hrs of Vital Signs/I&O Vital Signs Date Time Temp Pulse Resp B/P B/P Pulse O2 O2 Flow FiO2 Mean Ox Delivery Rate 01/31 1200 98.3 57 18 148/82 01/31 0822 98.3 57 18 148/82 92 Room Air 01/31 0031 99.1 65 12 130/88 91 Room Air Intake & Output 01/31 1600 01/31 0800 01/31 0000 Intake Total 120 600 Output Total 500 2 Balance -380 598 Intake, Oral 120 600 Output, Other 2 Output, Urine 500 Physical Exam General Appearance: Alert, Oriented X3, Cooperative, No Acute Distress Other Physical Findings: Skin bandage wrapped around the head, over the scalp lesion as noted yesterday and the day before, not actively bleeding/oozing; mildly tender, left wrist bruise/swelling has decreased significantly HEENT PERRLA, EOMI, scalp lesion covered with a bandage (see H&P for original discription), moist mucosa Neck Supple, No JVD, no cervical tenderness Lymphatic Cervical nl Cardiovascular Regular Rate, Normal S1, Normal S2 Lungs b/l clear, except for decreased breath sound over left basal region Abdomen Normal Bowel Sounds, Soft, No Tenderness Neurological Normal Speech, Strength at 5/5 X4 Ext, Normal Tone, Sensation Intact, Cranial Nerves 3-12 NL, gait not examined, but noted as in HPI Extremities No Clubbing, No Cyanosis, Normal Pulses, No Tenderness/Swelling, hip compression test normal, non-tender, is moving normally, left wrist lesion has decreased and she is able to move her left wrist without difficulty, able to move both upper extremities across over to opp shoulder, non tender, significant arthritic chages- suggestive of rheumatoid arthritis as well as osteoarthritis Vascular Normal Pulses, Pulses Symmetrical Current Medications: Current Medications Sig/Jeffry Start time Last Medication Dose Route Stop Time Status Admin Acetaminophen 650 MG Q6P PRN 01/28 1930 DCD PO Aspirin 81 MG DAILY 01/30 1000 DCD 01/31 PO 0901 Atorvastatin Calcium 10 MG 1700 01/29 1700 DCD 01/30 PO 1637 Citalopram 30 MG DAILY 01/29 1000 DCD 01/31 Hydrobromide PO 0858 Enoxaparin Sodium 40 MG DAILY 01/30 1000 DCD 01/31 SC 0900 Folic Acid 1 MG DAILY 01/29 1000 DCD 01/31 PO 0859 Hydrochlorothiazide 12.5 MG DAILY 01/30 1000 DCD 01/31 PO 0900 Memantine 10 MG BID 01/28 2200 DCD 01/31 PO 0900 Morphine Sulfate 2 MG Q4P PRN 01/28 1930 DCD IV Oxybutynin Chloride 5 MG BID 01/28 2200 DCD 01/31 PO 0859 Polyethylene Glycol 17 GM DAILY 01/29 1000 DCD 01/31 PO 0858 Rivastigmine 9.5 MG DAILY 01/29 1000 DCD 01/31 TOP 0859 Assessment/Plan Assessment: 86 yo F with past medical history of dementia, HTN, HLD, RA, OA, urinary incontinence, constipation, depression, was brought in by ambulance earlier this afternoon after sustaining a fall injury. Currently she is admittd and being observed, and managed in telemetry floor for the following issues: #Fall injury with truma to head History is not clear whether she sustained a mechanical fall or had an episode of syncope with a fall, so warrants a work-up, observation, and management accordingly. Differentials considered were mechanical fall, syncope, ACS, arrhythmia, TIA/stroke, dehydration, hypoglycemia among others. Echo was not contributory for any cause. -She is confused and is not at her baseline today. -no overnight event/arrhythmia -Continue wound care for her scalp lesion -Continue fall precautions -Continue antihypertensive medications and aspirin -PT eval: Physical therapy assessment carried out this morning (third day) again suggested short-term rehabilitation after being discharged from here. She is requiring assistance for almost every activities according to physical therapist today. She has been medically stable during her stay in the hospital, so can be discharged to [facility] today with PT and related services. #Macrocytic anemia Hb is 11 with high MCV suggestive of possible Vit B12 deficinecy, which has been ruled out with Vitamin B12, Folate level, and iron studies within normal limits. #Left hand bruise -X-ray of her left wrist showed old osteoarthritic changes, no fracture or dislocation. #Right shoulder examination is normal currently, so will only observe for now #Continue medications for dementia, hyperlipidemia, urinary incontinence, depression with home meds #Diet: Heart healthy diet #DVT ppx: ALPS for now, as possiblity of bleeding is still present #Code status: DNR/DNI Problem List: 1. Syncope 2. Falls 3. Hematoma 4. Scalp wound 5. Dementia 6. HTN (hypertension) 7. HLD (hyperlipidemia) 8. Rheumatoid aortitis 9. Osteoarthritis 10. Urinary incontinence 11. Constipation 12. Depression 13. Bruising of wrist Pain Ratin Pain Location: - Pain Goal: Pain 4 or less Pain Plan: prn Tomorrow's Labs & Rationales: -
[2017-01-31 12:00] VITALS: BP 148/82
--- NOTE | 2017-01-31 17:37 | PN- Att Addend ---
Attending MD Review Statement Attending Statement Attending MD Statement: examined this patient, discuss w/resident/PA/SENIOR FINANCIAL, agreed w/resident/PA/S[employer]IOR [employer], reviewed EMR data (avail), discussed w/nursing, discussed w/ case mgmt Attending Assessment/Plan: Vital Signs Date Time Temp Pulse Resp B/P B/P Pulse O2 O2 Flow FiO2 Mean Ox Delivery Rate 01/31 1200 98.3 57 18 148/82 01/31 0822 98.3 57 18 148/82 92 Room Air 01/31 0031 99.1 65 12 130/88 91 Room Air Patient seen and examined at bedside. Discussed with patient the care plan. Patient is being discharged to [facility] for subacute rehabilitation. Please see the discharge summary for more details.
== END 2017-01-31 14:09 | DRG 312 ==
LOC: ERH 15:07 → ERHI 18:27 → 1NO 18:27 → ENRESERV 19:28 → 1NO 20:27 → ENPENDDIS 01-31 10:50 → 1NO 01-31 14:09
PROVIDERS: Internal Medicine; Physician Assistant; ADMIT Internal Medicine
DX: R55 Syncope and collapse (principal); E86.0 Dehydration; F03.90 Unspecified dementia, unspecified severity, without behavioral disturbance, psychotic disturbance, mood disturbance, and anxiety; D53.9 Nutritional anemia, unspecified; S00.03XA Contusion of scalp, initial encounter; I12.9 Hypertensive chronic kidney disease with stage 1 through stage 4 chronic kidney disease, or unspecified chronic kidney disease; N18.9 Chronic kidney disease, unspecified; M06.9 Rheumatoid arthritis, unspecified; M81.0 Age-related osteoporosis without current pathological fracture; E78.5 Hyperlipidemia, unspecified; M19.90 Unspecified osteoarthritis, unspecified site; W18.30XA Fall on same level, unspecified, initial encounter; Y92.521 Bus station as the place of occurrence of the external cause; Z87.891 Personal history of nicotine dependence; Z66 Do not resuscitate
CPT/HCPCS: 1NSP; 36415; 73110-LT; 81001; 82436; 93005; 93010; 93306; 97116-GO; 97161-GP; 97530-GO; J1650; J3490